=== PATIENT | male | born 1990 | race Caucasian/White ===

== ENCOUNTER 2017-02-15 13:25 | Emergency (ER) | payer SELFPAY ==
[~2017-02-15] VITALS: Wt 74.8 kg
[~2017-02-15 13:25] MED LIST: AMOXIL500 MG PO; ANUSOL-HC25 MG RC; CIPRO500 MG PO; CLEOCIN HCL150 MG PO; CLINDAMYCIN HC300 MG PO; CORTISPORIN 1%7.5 M1 OP; HYDROCODONE BIT1 T11 PO; LIDOCAINE VISC100 ML MM; MOTRIN800 MG; MOTRIN800 MG PO; Motrin,Rufen400 MG PO; OTC SINUS MED; PENICILLIN VK500 MG PO; Peridex 473 ML473 ML PO; ROBITUSSIN-AC480 ML PO; SUDAFED60 MG PO; TRAMADOL HCL50 MG PO; ZYRTEC10 MG PO
[2017-02-15] MEDS ORDERED: ACULAR 3ML 3 ML5 ML OPH (13:56)
[2017-02-15] MEDS ORDERED: Tobrex Ophth S2.5 ML OPH (13:56)
== END 2017-02-15 14:07 | disposition home or self-care (01) ==
LOC: ED 13:25
DX: S05.01XA Injury of conjunctiva and corneal abrasion without foreign body, right eye, initial encounter (principal); H16.133 Photokeratitis, bilateral; F17.200 Nicotine dependence, unspecified, uncomplicated; W89.8XXA Exposure to other man-made visible and ultraviolet light, initial encounter; Y93.89 Activity, other specified; Y92.89 Other specified places as the place of occurrence of the external cause; Y99.8 Other external cause status

== ENCOUNTER 2017-02-21 10:58 | Emergency (ER) | payer SELFPAY ==
[~2017-02-21] VITALS: Ht 190.5 cm; Wt 74.8 kg
[~2017-02-21 10:58] MED LIST changes: +ACULAR 3ML 3 ML5 ML OPH; +Tobrex Ophth S2.5 ML OPH
== END 2017-02-21 13:08 | disposition home or self-care (01) ==
LOC: ED 10:58
DX: H16.133 Photokeratitis, bilateral (principal); F17.200 Nicotine dependence, unspecified, uncomplicated

== ENCOUNTER 2017-08-22 01:06 | Emergency (ER) | payer SELFPAY ==
[~2017-08-22] VITALS: Ht 190.5 cm; Wt 79.4 kg
[2017-08-22] MEDS ORDERED: Motrin,Rufen800 MG PO (02:01)
== END 2017-08-22 02:19 | disposition home or self-care (01) ==
LOC: ED 01:06
DX: S52.592A Other fractures of lower end of left radius, initial encounter for closed fracture (principal); F17.200 Nicotine dependence, unspecified, uncomplicated; W18.09XA Striking against other object with subsequent fall, initial encounter; Y93.89 Activity, other specified; Y92.89 Other specified places as the place of occurrence of the external cause; Y99.9 Unspecified external cause status

== ENCOUNTER 2018-01-25 07:50 | Emergency (ER) | payer SELFPAY ==
[~2018-01-25] VITALS: Ht 190.5 cm; Wt 77.1 kg
[~2018-01-25 07:50] MED LIST changes: +Motrin,Rufen800 MG PO
== END 2018-01-25 11:41 | disposition home or self-care (01) ==
LOC: ED 07:50
DX: S80.02XA Contusion of left knee, initial encounter (principal); I10 Essential (primary) hypertension; F17.200 Nicotine dependence, unspecified, uncomplicated; W18.39XA Other fall on same level, initial encounter; Y93.89 Activity, other specified; Y92.810 Car as the place of occurrence of the external cause; Y99.8 Other external cause status

== ENCOUNTER 2019-11-01 21:17 | Emergency (ER) | payer SELFPAY ==
[~2019-11-01] VITALS: Ht 190.5 cm; Wt 79.4 kg
[~2019-11-01 21:17] MED LIST changes: +ANTIBIOTIC28.4 GM T; +CEPHALEXIN500 M1 PO; +IBU800 MG PO
== END 2019-11-01 22:38 | disposition left against medical advice (07) ==
LOC: ED 21:17
DX: S01.01XA Laceration without foreign body of scalp, initial encounter (principal); I10 Essential (primary) hypertension; W22.8XXA Striking against or struck by other objects, initial encounter; Y93.89 Activity, other specified; Y92.89 Other specified places as the place of occurrence of the external cause; Y99.8 Other external cause status

== ENCOUNTER 2020-04-26 14:02 | Emergency (ER) | payer OTHER ==
[~2020-04-26] VITALS: Ht 182.8 cm; Wt 77.1 kg
[2020-04-26 16:56] LABS: URINE AMPHETAMINES > 1000 (1000ng/ml); URINE BARBITURATES < 200 (200ng/ml); URINE BENZODIAZEPINES < 200 (200ng/ml); URINE CANNABINOIDS (THC) > 50 (50ng/ml); URINE COCAINE < 300 (300ng/ml); URINE METHADONE < 300 (300ng/ml); URINE OPIATES < 300 (300ng/ml)
[2020-04-26 16:58] LABS: URINE PHENCYCLIDINE < 25 (25ng/ml)
== END 2020-04-26 17:13 | disposition home or self-care (01) ==
LOC: ED 14:02
PROVIDERS: Student in an Organized Health Care Education/Training Program
DX: F15.10 Other stimulant abuse, uncomplicated (principal); R07.89 Other chest pain; R20.2 Paresthesia of skin; R06.02 Shortness of breath; F14.10 Cocaine abuse, uncomplicated; F12.90 Cannabis use, unspecified, uncomplicated; F17.200 Nicotine dependence, unspecified, uncomplicated; Z79.899 Other long term (current) drug therapy; Z79.2 Long term (current) use of antibiotics

== ENCOUNTER 2020-05-02 03:05 | Emergency (ER) | payer OTHER ==
[~2020-05-02] VITALS: Ht 190.5 cm; Wt 77.1 kg
[2020-05-02 03:42] LABS: BASO % 0.6 % (0.0-1.0); EOS # 0.1 10*3/uL (0.0-0.4); EOS % 1.7 % (1.0-4.0); HEMATOCRIT 39.5 % (42.0-52.0); LYMPH % 38.8 % (27.0-41.0); MEAN CELL VOLUME 90.2 fl (80.0-94.0); MEAN CORPUSCULAR HGB 31.1 pg (27.0-31.0); MEAN CORPUSCULAR HGB CONC 34.4 g/dl (33.0-37.0); MEAN PLATELET VOLUME 10.5 fl (9.6-12.3); MONO # 0.5 10*3/uL (0.1-1.0); MONO % 10.1 % (3.0-9.0); NEUT # 2.5 10*3/uL (2.3-7.9); NEUT % 48.6 % (47.0-73.0); PLATELET COUNT AUTOMATED 222 10*3/uL (130-400); RED BLOOD COUNT 4.38 10*6/uL (4.50-5.90); WHITE BLOOD COUNT 5.2 10*3/uL (4.8-10.8)
[2020-05-02 04:00] LABS: ACETAMINOPHEN (TYLENOL) < 5.0 ug/ml (10-30); ALKALINE PHOSPHATASE 96 U/L (45-117); BUN 12 mg/dl (7-24); CHLORIDE 109 mmol/L (98-107); CPK 228 U/L (39-308); CREATININE 1.48 mg/dL (0.70-1.30); POTASSIUM 3.7 mmol/L (3.5-5.1); SGOT/AST 23 IU/L (3-35); SGPT/ALT 30 U/L (12-78); SODIUM 139 mmol/L (136-145); TOTAL PROTEIN 7.2 gm/dL (6.4-8.2)
[2020-05-02 04:07] LABS: ETHYL ALCOHOL < 3.0 mg/dl (<3)
[2020-05-02 09:50] LABS: BILIRUBIN Negative (Negative); BLOOD 3+ (Negative); CLARITY Cloudy (Clear); COLOR Orange (Yellow); GLUCOSE Negative (Negative); KETONE Negative (Negative); LEUKO ESTERASE Negative (Negative); NITRITE Negative (Negative)
[2020-05-02 09:52] LABS: URINE AMPHETAMINES > 1000 (1000ng/ml); URINE BARBITURATES < 200 (200ng/ml); URINE BENZODIAZEPINES < 200 (200ng/ml); URINE CANNABINOIDS (THC) > 50 (50ng/ml); URINE COCAINE < 300 (300ng/ml); URINE METHADONE < 300 (300ng/ml); URINE OPIATES < 300 (300ng/ml)
[2020-05-02 09:54] LABS: URINE PHENCYCLIDINE < 25 (25ng/ml)
[2020-05-02 10:02] LABS: BACTERIA 1+; RBC TNTC rbc/hpf (0-2)
== END 2020-05-02 17:37 | disposition short-term general hospital (02) ==
LOC: ED 03:05
PROVIDERS: Internal Medicine
DX: F43.21 Adjustment disorder with depressed mood (principal); Z20.822 Contact with and (suspected) exposure to COVID-19

== ENCOUNTER 2020-08-15 06:24 | Emergency (ER) | payer SELFPAY ==
[~2020-08-15] VITALS: Ht 190.5 cm; Wt 64.5 kg
[2020-08-15 06:55] LABS: BASO % 0.6 % (0.0-1.0); EOS # 0.1 10*3/uL (0.0-0.4); EOS % 2.7 % (1.0-4.0); HEMATOCRIT 38.9 % (42.0-52.0); LYMPH # 1.4 10*3/uL (1.3-4.4); MEAN CELL VOLUME 91.1 fl (80.0-94.0); MEAN CORPUSCULAR HGB 30.4 pg (27.0-31.0); MEAN CORPUSCULAR HGB CONC 33.4 g/dl (33.0-37.0); MEAN PLATELET VOLUME 9.9 fl (9.6-12.3); MONO # 0.5 10*3/uL (0.1-1.0); MONO % 9.8 % (3.0-9.0); NEUT # 2.9 10*3/uL (2.3-7.9); NEUT % 58.7 % (47.0-73.0); PLATELET COUNT AUTOMATED 187 10*3/uL (130-400); RED BLOOD COUNT 4.27 10*6/uL (4.50-5.90); RED CELL DISTRI WIDTH 12.4 % (0-14.5); WHITE BLOOD COUNT 4.9 10*3/uL (4.8-10.8)
[2020-08-15 07:11] LABS: ALBUMIN 3.5 gm/dl (3.1-4.5); ALKALINE PHOSPHATASE 77 U/L (45-117); BUN 13 mg/dl (7-24); CHLORIDE 106 mmol/L (98-107); CREATININE 1.02 mg/dL (0.70-1.30); ETHYL ALCOHOL < 3.0 mg/dl (<3); POTASSIUM 3.7 mmol/L (3.5-5.1); SGOT/AST 15 IU/L (3-35); SGPT/ALT 27 U/L (12-78); SODIUM 140 mmol/L (136-145); TOTAL PROTEIN 6.6 gm/dL (6.4-8.2)
== END 2020-08-15 08:00 | disposition home or self-care (01) ==
LOC: ED 06:24
PROVIDERS: Internal Medicine
DX: F10.10 Alcohol abuse, uncomplicated (principal); Y90.0 Blood alcohol level of less than 20 mg/100 ml

== ENCOUNTER 2021-08-19 13:40 | Emergency (ER) | payer MEDICAID | END 2021-08-19 18:30 | disposition home or self-care (01) | LOC: ED 13:40 | DX: S09.90XA Unspecified injury of head, initial encounter (principal); T40.601A Poisoning by unspecified narcotics, accidental (unintentional), initial encounter; F17.210 Nicotine dependence, cigarettes, uncomplicated; X58.XXXA Exposure to other specified factors, initial encounter; Y93.89 Activity, other specified; Y99.8 Other external cause status; Y92.89 Other specified places as the place of occurrence of the external cause ==